=== PATIENT | female | born 1945 | race Caucasian/White ===

== ENCOUNTER 2020-08-28 13:02 | Emergency (ER) | payer MEDICARE, SELFPAY ==
[2020-08-28 13:11] VITALS: BP 124/74; PULSE 71; RESP 16; TEMP 36; O2SAT 98; BMI 25.0
--- NOTE | 2020-08-28 13:40 | ED_ITS ---
HPI - Eye Problem General Chief complaint: Eye Problems Stated complaint: eye problem Time Seen by Provider: 08/28/20 13:14 Related Data Allergies Allergy/AdvReac Type Severity Reaction Status Date / Time Sulfa (Sulfonamide Allergy Unknown Verified 08/28/20 13:18 Antibiotics) Review of Systems Review of Systems: Constitutional : No Weight loss, No Fever, No Chills, No Night Sweats, No Fatigue, No Malaise ENT/Mouth : No Hearing loss, No Ear Pain, No Nasal Congestion, No Sinus Pain, No Hoarseness, No sore throat, No Rhinorrhea, No Swallowing Difficulty Eyes: Eye Pain, no Swelling, Redness, No Foreign Body, No Discharge, No Vision Changes Respiratory : No Cough, No Sputum, No Wheezing, No Smoke Exposure, No Dyspnea Skin : No Skin Lesions, No rash Neuro : No Weakness, No Numbness, No Paresthesias, No Loss of Consciousness, No Dizziness, No Headache Psych : No Anxiety/Panic, No Depression, No SI/HI/AH/VH, No Social Issues, Yes all other systems are reviewed and are negative PMFSH Social History Social History Advance Directives: Yes Advance Directives Information Provided: Yes Advance Directives on File: No Physical Exam Vital Signs: Vital Signs: Last Vital Signs Temp 96.8 F 08/28/20 13:11 Pulse 71 08/28/20 13:11 Resp 16 08/28/20 13:11 BP 124/74 08/28/20 13:11 Pulse Ox 98 08/28/20 13:11 Body Mass Index 25.0 Const: General: healthy appearing, no acute distress and well developed Nutritional Appearance: well nourished Orientation/consciousness: patient oriented x3 Eyes: Other: Visual acuity 20/50 in both eyes Eyelids: Yes eyelids normal Conjunctivae: conjunctivae normal Sclerae: scleral abnormal (Hematoma) right Corneas: corneas normal Pupils: Equal, round and reactive pupils present Direct Ophthalmoscopy: normal light reflex and no photophobia Neck: Neck: Yes normal visual inspection, Yes full ROM and Yes trachea midline Thyroid: Thyroid normal Resp: Auscultation: clear to auscultation bilaterally Cardio: Rate: regular rate Rhythm: regular rhythm GI: Inspection: Yes normal to inspection and No distended Palpation (GI): No hepatosplenomegaly present Auscultation: normal bowel sounds Skin: General skin exam: elasticity normal, turgor normal and dry skin Neuro: General: patient oriented x3 Cranial nerves: Yes Equal, round and reactive pupils present Course Course Course Narrative: 74-year-old female here today complaining of worsening redness of her red dye. Patient was seen 1 week ago in urgent care for the same. No foreign body was found and no corneal abrasion. Her granddaughter reports that the eye is not getting any better. Patient has not seen printed circuit board reworker. Patient denies headache, hypertension, dizziness, blurry vision. Visual acuity 20/50 in both eyes. Patient woke up with red eye 1 week ago, denies any injury. Patient reports having seasonal allergies and the rubbing her eyes. Patient will follow-up with printed circuit board reworker. She can put eyedrops or allergy drops. Discharge Plan Discharge Clinical Impression: Subconjunctival hemorrhage Qualifiers: Laterality: right Qualified Code(s): H11.31 - Conjunctival hemorrhage, right eye Patient Disposition: Home, Self-Care Instructions: Subconjunctival Hemorrhage (ED) Additional Instructions: Please follow-up with printed circuit board reworker Dr. Koroma [phone]. You may apply natural tears eyedrops. Please avoid rubbing your eyes or bending over. You may return to emergency department if your symptoms will get worst or if you experience any additional concerning symptoms Referrals: Javid Koroma [Physician] - 2 days Interventions: ED Discharge Assessment Last Done: 08/28/20 13:58 Discharge Date/Time: 08/28/20 13:53
== END 2020-08-28 13:53 | disposition home or self-care (01) ==
PROVIDERS: Emergency Provider Emergency Medicine; PCP Internal Medicine
DX: H11.31 Conjunctival hemorrhage, right eye (principal)
CPT/HCPCS: 99282; 99284